=== PATIENT | female | born 2000 | race African-American/Black ===

== ENCOUNTER 2019-03-15 03:27 | Observation (INO) | payer OTHER ==
[~2019-03-15] VITALS: Ht 172.7 cm; Wt 60.0 kg
[2019-03-15] VITALS (12 sets, daily range): BP systolic 98–127; BP diastolic 60–78
[2019-03-15] MEDS ORDERED: QUETIAPINE FUM300 MG PO (03:54)
[2019-03-15] MEDS ORDERED: VENLAFAXINE HCL75 M1 PO (03:58)
[2019-03-15 04:23] LABS: HEMOGLOBIN 10.5 g/dl (12.0-16.0); IMMATURE GRANULOCYTES 0.4 % (0.0-5.0); MEAN CELL VOLUME 83.3 fL CALC (80.0-100.0); MEAN CORPUSCULAR HGB 27.3 pG CALC (26.0-32.0); MEAN CORPUSCULAR HGB CONC 32.8 g/L CALC (32.0-36.0); NEUT# 5.48 thou/uL (2.00-7.15); RED BLOOD COUNT 3.84 mill/uL (4.20-5.60); RED CELL DISTRI WIDTH 12.9 % (11.5-15.5)
[2019-03-15 04:31] LABS: ALBUMIN 4.5 g/dL (3.2-5.0); ALKALINE PHOSPHATASE 54 u/l (38-126); ANION GAP 16 (6-22 (CALC)); BILIRUBIN, TOTAL 0.3 mg/dL (0.0-1.4); BUN 16 mg/dL (7-17); BUN/CREATININE RATIO 18 (12-20 (CALC)); CARBON DIOXIDE 22 mmol/l (22-30); CHLORIDE 109 mmol/l (95-108); CREATININE 0.9 mg/dL (0.5-1.0); GFR > 60 ML/MIN (>=60 (CALC)); GFR FOR AFR.AMER. > 60 ML/MIN (>=60 (CALC)); POTASSIUM 3.1 mmol/l (3.5-5.1); SGOT/AST 19 u/l (14-36); SODIUM 144 mmol/l (137-146); TOTAL PROTEIN 7.5 g/dL (6.3-8.2)
[2019-03-15 04:49] LABS: ETHYL ALCOHOL 0 mg/dl (0-30)
[2019-03-15 06:22] LABS: URINE BILIRUBIN - DIPSTICK NEGATIVE (NEGATIVE); URINE BLOOD DIPSTICK LARGE (NEGATIVE); URINE GLUCOSE - DIPSTICK NEGATIVE (NEGATIVE); URINE KETONE NEGATIVE (NEGATIVE); URINE LEUK ESTERASE NEGATIVE (NEGATIVE); URINE NITRITE - DIPSTICK NEGATIVE (Negative); URINE PROTEIN - DIPSTICK NEGATIVE (NEG-TRACE); URINE UROBILINOGEN - DIPSTICK 0.2 E.U./dL (0.2)
[2019-03-15 06:23] LABS: URINE COLOR BROWN; URINE RBC 50-100 RBC/hpf (0-5)
[2019-03-15 06:25] LABS: COCAINE NEGATIVE (NEGATIVE); METHADONE NEGATIVE (NEGATIVE); TETRAHYDROCANNABIONOL NEGATIVE (NEGATIVE); TRICYLIC ANTIDEPRESSANTS POSITIVE (NEGATIVE)
[2019-03-15 06:26] LABS: BARBITURATES NEGATIVE (NEGATIVE); OXCYCODONE NEGATIVE (NEGATIVE)
[2019-03-15 14:24] LABS: MAGNESIUM 2.5 mg/dL (1.6-2.3); POTASSIUM 4.8 mmol/l (3.5-5.1)
[2019-03-16] VITALS: BP 102/72
[2019-03-16 04:00] VITALS: BP 103/64
[2019-03-16 08:15] VITALS: BP 97/64
[2019-03-16 10:45] VITALS: BP 104/70
== END 2019-03-16 14:06 | disposition home or self-care (01) ==
LOC: ED 03:27 → ED-I 04:10 → ED 06:45 → ICU 06:46 → MS2 15:58
PROVIDERS: Emergency Medicine; ADMIT Internal Medicine; ATTEND Internal Medicine
DX: T43.591A Poisoning by other antipsychotics and neuroleptics, accidental (unintentional), initial encounter (principal); I45.81 Long QT syndrome; F32.9 Major depressive disorder, single episode, unspecified; E87.6 Hypokalemia; E83.42 Hypomagnesemia; Y92.009 Unspecified place in unspecified non-institutional (private) residence as the place of occurrence of the external cause
CPT/HCPCS: G0378; J3475

== ENCOUNTER 2022-06-02 10:13 | Emergency (ER) | payer OTHER ==
[~2022-06-02] VITALS: Ht 172.7 cm; Wt 62.7 kg
[~2022-06-02 10:13] MED LIST: QUETIAPINE FUM300 MG PO; VENLAFAXINE HCL75 M1 PO
[2022-06-02 10:20] VITALS: BP 107/72
[2022-06-02 10:54] VITALS: BP 107/72
== END 2022-06-02 10:54 | disposition home or self-care (01) | DRG 605 ==
LOC: ED 10:13
DX: S61.311A Laceration without foreign body of left index finger with damage to nail, initial encounter (principal); W45.8XXA Other foreign body or object entering through skin, initial encounter

== ENCOUNTER 2023-02-05 18:56 | Emergency (ER) | payer BC ==
[~2023-02-05] VITALS: Ht 172.7 cm; Wt 70.0 kg
[2023-02-05 20:18] LABS: BASO% 0.8 % (0-3); EOS% 7.2 % (0-8); HEMATOCRIT 37.9 % (37.0-47.0); HEMOGLOBIN 12.2 g/dl (12.0-16.0); MEAN CELL VOLUME 86.5 fL CALC (80.0-100.0); MEAN CORPUSCULAR HGB 27.9 pG CALC (26.0-32.0); MEAN CORPUSCULAR HGB CONC 32.2 g/dL CAL (32.0-36.0); MONO% 9.2 % (2-13); NEUT# 1.97 thou/uL (2.00-7.15); NEUT% 32.8 % (42-76); RED BLOOD COUNT 4.38 mill/uL (4.20-5.60)
[2023-02-05 20:38] LABS: ALBUMIN 4.9 g/dL (3.2-5.0); ALKALINE PHOSPHATASE 44 u/l (38-126); ANION GAP 14 (6-22 (CALC)); BILIRUBIN, TOTAL 0.3 mg/dL (0.02-1.3); BUN 20 mg/dL (7-17); BUN/CREATININE RATIO 23 (12-20 (CALC)); CARBON DIOXIDE 24 mmol/l (22-30); CHLORIDE 107 mmol/l (95-108); CREATININE 0.9 mg/dL (0.5-1.0); GFR FOR AFR.AMER. > 60 ML/MIN (>=60 (CALC)); GFR OTHER RACES > 60 ML/MIN (>=60 (CALC)); POTASSIUM 4.2 mmol/l (3.5-5.1); SGOT/AST 24 u/l (14-36); SODIUM 141 mmol/l (137-146); TOTAL PROTEIN 8.4 g/dL (6.3-8.2)
[2023-02-05 21:02] LABS: URINE BILIRUBIN - DIPSTICK NEGATIVE (NEGATIVE); URINE BLOOD DIPSTICK NEGATIVE (NEGATIVE); URINE COLOR YELLOW; URINE GLUCOSE - DIPSTICK NEGATIVE (NEGATIVE); URINE KETONE NEGATIVE (NEGATIVE); URINE LEUK ESTERASE NEGATIVE (NEGATIVE); URINE PH 7.5 (4.5-8.0); URINE PROTEIN - DIPSTICK TRACE mg/dL (NEG-TRACE)
[2023-02-05 21:03] LABS: URINE NITRITE - DIPSTICK NEGATIVE (Negative)
[2023-02-05] MEDS ORDERED: MECLIZINE25 MG PO (21:32)
[2023-02-05 21:43] VITALS: BP 105/68
== END 2023-02-05 21:51 | disposition home or self-care (01) | DRG 149 ==
LOC: ED 18:56
PROVIDERS: Family Medicine
DX: R42 Dizziness and giddiness (principal)